=== PATIENT | male | born 1960 | race Asian ===

== ENCOUNTER 2024-03-07 13:38 | Emergency (ER) | payer MEDICAID ==
[~2024-03-07] VITALS: Ht 170.2 cm; Wt 140.0 kg
[2024-03-07 13:40] VITALS: BP 148/91; PULSE 84; RESP 18; TEMP 98.2; O2SAT 99
[2024-03-07] MEDS: LORATADINE 10 MG TABLET PO ONE (14:30)
[2024-03-07] MEDS: DiphenhydrAMINE HCL 50 MG/ML VIAL IM ONE (14:30)
[2024-03-07] MEDS: PredniSONE 20 MG TABLET PO ONE (14:30)
[2024-03-07] MEDS ORDERED: HYDR30CR3 TP (15:01)
[2024-03-07] MEDS ORDERED: PRED-554 PO (15:01)
[2024-03-07] MEDS ORDERED: LORA10TA7 PO (15:01)
[2024-03-07] MEDS ORDERED: DIPH50CA37 PO (15:01)
== END 2024-03-07 15:14 | disposition home or self-care (01) ==
LOC: EMS 13:38
DX: L25.9 Unspecified contact dermatitis, unspecified cause (principal); F17.210 Nicotine dependence, cigarettes, uncomplicated; Z79.52 Long term (current) use of systemic steroids
CPT/HCPCS: 99283; 96372; J1200; J7512